=== PATIENT | male | born 2000 | race Two or more races ===

== ENCOUNTER 2021-08-03 07:35 | Emergency (ER) | payer MEDICAID, OTHER ==
[2021-08-03] MEDS ORDERED: SODIUM BICARBONATE 8.4% INJ 50ML SYRINGE IV ONE (07:36)
[2021-08-03] MEDS ORDERED: EPINEPHrine HCL 1 MG/10 ML SYRG IV ONE (07:36)
== END 2021-08-03 07:49 ==
LOC: EDBD 07:35 → ER 07:35
DX: I46.9 Cardiac arrest, cause unspecified (principal); R41.82 Altered mental status, unspecified
CPT/HCPCS: 92950; 99285; J0171